=== PATIENT | male | born 1975 | race Caucasian/White ===

== ENCOUNTER 2016-11-03 20:20 | Emergency (ER) | payer BC ==
[~2016-11-03] VITALS: Ht 182.9 cm; Wt 91.6 kg
[2016-11-03 20:28] VITALS: Ht 182.9 cm; Wt 91.6 kg
[2016-11-03] MEDS ORDERED: CEFTRIAXONE SOD INJ 1 GM ADDVIAL IV STA (21:42)
[2016-11-03] MEDS ORDERED: ONDANSETRON INJ 2 MG/ML 2 ML VIAL IV STA (21:42)
[2016-11-03] MEDS ORDERED: SODIUM CHLORIDE 0.9% 1000ML 1,000 ML IV STA (21:42)
[2016-11-03] MEDS ORDERED: KETOROLAC TROMETHAMINE 30 MG/ML VIAL IV STA (21:42)
[2016-11-03] MEDS ORDERED: MULT-506 PO (21:53)
[2016-11-03] MEDS ORDERED: ESCI1TAB18 PO (21:53)
[2016-11-03 22:07] VITALS: O2SAT 96
[2016-11-03 22:09] VITALS: TEMP 37.4
[2016-11-03 22:33] LABS: COMPLETE YES; HEMATOCRIT 39.3 % (42-52); IG% 0.2 %; LYMPH % 7.3 %; LYMPH ABS # 0.48 K/uL (1.2-3.4); MEAN CELL VOLUME 88.3 fL (80-100); MEAN CORPUSCULAR HEMOGLOBIN 31.7 pg (25-34); MEAN CORPUSCULAR HGB CONC 35.9 g/dl (32-36); MEAN PLATELET VOLUME 9.4 fL (7.4-10.4); MONO % 8.3 %; NEUT % 84.2 %; PLATELET COUNT 161 K/uL (130-400); RED BLOOD COUNT 4.45 M/uL (4.7-6.1); WHITE BLOOD COUNT 6.62 K/uL (4.8-10.8)
--- NOTE | 2016-11-03 22:41 | DIAGNOSTIC IMAGING REPORT ---
SINGLE VIEW CHEST CLINICAL HISTORY: Fever. FINDINGS: An AP, portable, upright chest radiograph is obtained. No prior studies are available for comparison at the time of dictation. The examination is degraded by portable technique and patient rotation. The cardiomediastinal silhouette is unremarkable. Faint patchy airspace opacities are questioned in the right lower lung. No lobar consolidation or pleural effusion is identified. No pneumothorax is seen. The bony thorax is grossly intact. IMPRESSION: 1. There is no lobar consolidation or pleural effusion. 2. Faint patchy opacities are questioned in the right lower lung. This may simply represent superimposition of shadows. A dedicated PA and lateral examination is recommended for further assessment. Electronically signed by: Austin Carpio M.D. 11/03/2016 10:40 PM Dictated Date/Time: 11/03/2016 10:39 PM
[2016-11-03 22:52] LABS: BUN/CREATININE RATIO 13.2 (10-20); CALCIUM 9.7 mg/dl (8.5-10.1); CREATININE 0.79 mg/dl (0.60-1.40); POTASSIUM 3.7 mmol/L (3.5-5.1)
[2016-11-03 23:46] LABS: LYME DISEASE AB IGM NEG (NEG)
[2016-11-03 23:47] LABS: LYME DISEASE AB IGG NEG (NEG)
[2016-11-03 23:51] LABS: MANUAL MICROSCOPIC REQUIRED? NO; REVIEW REQ? NO; URINE APPEARANCE CLEAR (CLEAR); URINE BILIRUBIN NEG (NEG); URINE COLOR YELLOW; URINE EPITHELIAL CELL AUTO 0-5 /lpf (0-5); URINE NITRITE NEG (NEG); URINE PH 6.5 (4.5-7.5); URINE SPECIFIC GRAVITY 1.012 (1.000-1.030); UROBILINOGEN NEG (NEG)
[2016-11-04] MEDS ORDERED: DOXY100C76 PO (00:24)
[2016-11-04 00:45] LABS: INFLUENZA A PCR Neg for Influ A (NEG); INFLUENZA B PCR Neg for Influ B (NEG)
[2016-11-04 00:49] VITALS: BP 110/77; PULSE 78; O2SAT 98
--- NOTE | 2016-11-04 01:16 | EMERGENCY ROOM VISIT NOTE ---
History Report prepared by Aron: Anya Singh Under the Supervision of: Dr. Berto Mijares M.D. First contact with patient: 21:17 Chief Complaint: FEVER Stated Complaint: FEVER,ACHES,NAUSEA,SWOLLEN AREA AROUND OLD TICKBIT History of Present Illness The patient is a 41 year old male who presents to the Emergency Room with complaints of a persistent rash starting 5 days ago. The rash is located around a tick bite he had 1 year ago. He developed cold symptoms 3 days ago. He reports diaphoresis, joint fatigue, cough, chest congestion, rhinorrhea, fever, and vomiting. He vomited 3 times today. He has a decreased appetite. He is able to swallow his saliva. He denies any sick contacts. He lives in an area with ticks. Source of History: patient Onset: 5 days ago Position: other (skin) Quality: other (rash) Timing: other (persistent) Associated Symptoms: + diaphoresis, + cough, + vomiting Note: Pt reports joint fatigue. Review of Systems See HPI for pertinent positives & negatives. A total of 10 systems reviewed and were otherwise negative. Past Medical & Surgical Medical Problems: (1) Seizure Family History Cancer Heart disease Hypertension Social History Smoking Status: Current Every Day Smoker Marital Status: Housing Status: lives with significant other Occupation Status: employed Current/Historical Medications Scheduled Doxycycline Monohydrate (Monodox), 100 MG PO BID Escitalopram Oxalate (Lexapro), 30 MG PO DAILY Multivitamin (Multivitamin), 1 TAB PO DAILY Allergies Coded Allergies: Ciprofloxacin (Unverified Allergy, Severe, PT STATES "NEAR EXPERIENCE", 11/03/16) Physical Exam Vital Signs Date Time Temp Pulse Resp B/P (MAP) Pulse Ox O2 Delivery O2 Flow Rate FiO2 11/04/16 00:49 78 18 110/77 98 11/03/16 22:28 78 11/03/16 22:09 37.4 75 18 121/77 95 Room Air 11/03/16 22:07 96 Room Air 11/03/16 20:28 37.3 96 18 139/83 96 Room Air Physical Exam GENERAL: Patient is a healthy-appearing well-nourished male HEAD: Normocephalic atraumatic EYES: Ocular movements intact pupils equal and react to light OROPHARYNX mucous membranes are moist no exudates present no erythema or edema present NECK: Supple no nuchal rigidity no evidence of meningitis or encephalitis CHEST: Good equal expansion LUNGS: Clear and equal to auscultation CARDIAC: Normal S1 and S2 ABDOMEN: Soft nontender no guarding BACK: No CVA tenderness EXTREMITIES: No pain upon palpation normal muscle strength in all groups no clubbing cyanosis or edema NEURO: Patient is following commands and answering questions appropriately. Alert and oriented x3 Cranial Nerves 2-12 grossly intact Medical Decision & Procedures ER Provider Diagnostic Interpretation: X-ray results as stated below per interpretation by me and the radiologist: SINGLE VIEW CHEST CLINICAL HISTORY: Fever. FINDINGS: An AP, portable, upright chest radiograph is obtained. No prior studies are available for comparison at the time of dictation. The examination is degraded by portable technique and patient rotation. The cardiomediastinal silhouette is unremarkable. Faint patchy airspace opacities are questioned in the right lower lung. No lobar consolidation or pleural effusion is identified. No pneumothorax is seen. The bony thorax is grossly intact. IMPRESSION: 1. There is no lobar consolidation or pleural effusion. 2. Faint patchy opacities are questioned in the right lower lung. This may simply represent superimposition of shadows. A dedicated PA and lateral examination is recommended for further assessment. Electronically signed by: Austin Carpio M.D. 11/03/2016 10:40 PM Dictated Date/Time: 11/03/2016 10:39 PM Laboratory Results 11/03/16 22:10 Red Blood Count 4.45, Mean Corpuscular Volume 88.3, Mean Corpuscular Hemoglobin 31.7, Mean Corpuscular Hemoglobin Concent 35.9, Mean Platelet Volume 9.4, Neutrophils (%) (Auto) 84.2, Lymphocytes (%) (Auto) 7.3, Monocytes (%) (Auto) 8.3, Eosinophils (%) (Auto) 0.0, Basophils (%) (Auto) 0.0, Neutrophils # (Auto) 5.58, Lymphocytes # (Auto) 0.48, Monocytes # (Auto) 0.55, Eosinophils # (Auto) 0.00, Basophils # (Auto) 0.00 11/03/16 22:10 Test 11/03/16 22:10 11/03/16 22:26 11/03/16 23:15 White Blood Count 6.62 K/uL (4.8-10.8) Red Blood Count 4.45 M/uL (4.7-6.1) Hemoglobin 14.1 g/dL (14.0-18.0) Hematocrit 39.3 % (42-52) Mean Corpuscular Volume 88.3 fL (80-100) Mean Corpuscular Hemoglobin 31.7 pg (25-34) Mean Corpuscular Hemoglobin Concent 35.9 g/dl (32-36) Platelet Count 161 K/uL (130-400) Mean Platelet Volume 9.4 fL (7.4-10.4) Neutrophils (%) (Auto) 84.2 % Lymphocytes (%) (Auto) 7.3 % Monocytes (%) (Auto) 8.3 % Eosinophils (%) (Auto) 0.0 % Basophils (%) (Auto) 0.0 % Neutrophils # (Auto) 5.58 K/uL (1.4-6.5) Lymphocytes # (Auto) 0.48 K/uL (1.2-3.4) Monocytes # (Auto) 0.55 K/uL (0.11-0.59) Eosinophils # (Auto) 0.00 K/uL (0-0.5) Basophils # (Auto) 0.00 K/uL (0-0.2) RDW Standard Deviation 40.1 fL (36.4-46.3) RDW Coefficient of Variation 12.4 % (11.5-14.5) Immature Granulocyte % (Auto) 0.2 % Immature Granulocyte # (Auto) 0.01 K/uL (0.00-0.02) Anion Gap 7.0 mmol/L (3-11) Est Creatinine Clear Calc Drug Dose 135.1 ml/min Estimated GFR () 129.3 Estimated GFR (Non- 111.5 BUN/Creatinine Ratio 13.2 (10-20) Calcium Level 9.7 mg/dl (8.5-10.1) Total Bilirubin 0.5 mg/dl (0.2-1) Direct Bilirubin 0.2 mg/dl (0-0.2) Aspartate Amino Transf (AST/SGOT) 42 U/L (15-37) Alanine Aminotransferase (ALT/SGPT) 71 U/L (12-78) Alkaline Phosphatase 99 U/L (45-117) Total Protein 7.6 gm/dl (6.4-8.2) Albumin 3.8 gm/dl (3.4-5.0) Lyme Disease IgG Antibody NEG (NEG) Lyme Disease IgM Antibody NEG (NEG) Monoscreen NEG (NEG) Influenza Type A (RT-PCR) Neg for Influ A (NEG) Influenza Type A Antigen Neg for Influ A (NEG) Influenza Type B Antigen Neg for Influ B (NEG) Influenza Type B (RT-PCR) Neg for Influ B (NEG) Urine Color YELLOW Urine Appearance CLEAR (CLEAR) Urine pH 6.5 (4.5-7.5) Urine Specific [place] 1.012 (1.000-1.030) Urine Protein NEG (NEG) Urine Glucose (UA) NEG (NEG) Urine Ketones TRACE (NEG) Urine Occult Blood TRACE (NEG) Urine Nitrite NEG (NEG) Urine Bilirubin NEG (NEG) Urine Urobilinogen NEG (NEG) Urine Leukocyte Esterase NEG (NEG) Urine WBC (Auto) 0 /hpf (0-5) Urine RBC (Auto) 0-4 /hpf (0-4) Urine Hyaline Casts (Auto) 0 /lpf (0-5) Urine Epithelial Cells (Auto) 0-5 /lpf (0-5) Urine Bacteria (Auto) NEG (NEG) Labs reviewed by ED physician. Medications Administered Medications (Trade) Dose Ordered Sig/Dolores Route Start Time Stop Time Status Last Admin Dose Admin Sodium Chloride 1,000 ml @ 999 mls/hr Q1H1M STAT IV 11/03/16 21:42 11/03/16 22:42 DC 11/03/16 22:24 999 MLS/HR Ketorolac Tromethamine (Toradol Inj) 30 mg NOW STAT IV 11/03/16 21:42 11/03/16 21:45 DC 11/03/16 22:36 30 MG Ceftriaxone Sodium (Rocephin Inj) 2 gm NOW STAT IV 11/03/16 21:42 11/03/16 21:45 DC 11/03/16 22:36 2 GM Ondansetron HCl (Zofran Inj) 4 mg NOW STAT IV 11/03/16 21:42 11/03/16 21:45 DC 11/03/16 22:36 4 MG ED Course 2137: Past medical records reviewed. The patient was evaluated in room C8. A complete history and physical examination was performed. 2141: Zofran Inj 4 mg IV, Rocephin Inj 2 gm IV, Toradol Inj 30 mg IV, NSS 1000 ml @ 999 mls/hr IV. 0015: Upon reexamination the patient is resting comfortably. I discussed results and treatment plan with the patient. He verbalizes agreement and understanding. The patient is ready for discharge. Medical Decision Prior records/ancillary studies reviewed. Triage Nursing notes reviewed. Additional history obtained from family. The patient's history was concerning for fever. Differential diagnosis: Etiologies such as viral syndrome, otitis, pharyngitis, pneumonia, influenza, meningitis, urinary tract infection, sepsis, bacteremia, as well as others were entertained. Medication Reconciliation: I attest that I have personally reviewed the patient' s current medication list Blood Pressure Screening: Patient was found to have an elevated blood pressure and was referred to their primary care doctor for recheck and further treatment This is a 41-year-old male who presents emergency department complaining of fever. The patient has an altered bite to his right torso and now suddenly had a rash expanding from that area. Based on this finding I feel the patient should be treated for erythema migrans. A Lyme titer was taken and is considered negative. However he was given 2 g Rocephin in the emergency Department with much improvement in his symptoms. He was also given a normal saline bolus along with Toradol. The patient does not have an elevation in his white blood count cell count and I do believe can be safely discharged home. Patient and family were in agreement with the treatment plan. I will continue the patient on doxycycline for the next 2 weeks Impression Primary Impression: Erythema migrans (Lyme disease) Scribe Attestation The scribe's documentation has been prepared under my direction and personally reviewed by me in its entirety. I confirm that the note above accurately reflects all work, treatment, procedures, and medical decision making performed by me. Departure Information Dispostion Home / Self-Care Prescriptions Doxycycline Monohydrate (Monodox) 100 Mg Cap 100 MG PO BID for 14 Days, #28 CAP Prov: Berto Mijares MD 11/04/16 Referrals No Doctor, Assigned Forms HOME CARE DOCUMENTATION FORM, IMPORTANT VISIT INFORMATION Patient Instructions ED Fever Unconf Cause, Fever - [facility], My [facility] Additional Instructions You were found to have an elevated blood pressure today (>120 sytolic or >90 diastolic). Per medicare guidelines, you need to follow up with this blood pressure screening with your Primary Care Physician (PCP). For a new PCP call [phone]. Take 600 mg Ibuprofen every 6 hours Take 1000 mg Tylenol every 6 hours You have been examined and treated today on an emergency basis only. This is not a substitute for, or an effort to provide, complete comprehensive medical care. It is impossible to recognize and treat all injuries or illnesses in a single emergency department visit. It is therefore important that you follow up closely with your PCP. Call as soon as possible for an appointment. Thank you for your time and consideration. I look forward to speaking with you again soon. Please don't hesitate to call us if you have any questions.
[2016-11-10 17:37] LABS: EBV EARLY ANTIGEN AB <9.00 U/ML; EHRLICHIA CHAFF IGG AB <1:64 (<1:64); EHRLICHIA CHAFF IGM AB <1:20 (<1:20)
== END 2016-11-04 00:51 | disposition home or self-care (01) ==
LOC: C.EDB 20:22 → C.EDC 11-04 00:51
DX: A69.20 Lyme disease, unspecified (principal); R56.9 Unspecified convulsions; Z80.9 Family history of malignant neoplasm, unspecified; Z82.49 Family history of ischemic heart disease and other diseases of the circulatory system; F17.210 Nicotine dependence, cigarettes, uncomplicated; Z79.899 Other long term (current) drug therapy

== ENCOUNTER → 2016-11-11 | Outpatient (CLI) | payer BC ==
[~2016-11-11] MED LIST: DOXY100C76 PO; ESCI1TAB18 PO; MULT-506 PO
--- NOTE | 2016-11-11 12:04 | DIAGNOSTIC IMAGING REPORT ---
L-SPINE MIN 4 VIEWS ROUTINE HISTORY: Pain M54.17 COMPARISON: None. FINDINGS: There is no fracture. No subluxation. Disc spaces are preserved. IMPRESSION: No fracture or subluxation within the lumbar spine. The above report was generated using voice recognition software. It may contain grammatical, syntax or spelling errors. Electronically signed by: Zbigniew Catalan M.D. 11/11/2016 12:03 PM Dictated Date/Time: 11/11/2016 12:02 PM
== END ==
LOC: C.RAD 11:46
PROVIDERS: ATTEND Family Medicine
DX: M54.17 Radiculopathy, lumbosacral region (principal)

== ENCOUNTER → 2016-11-18 | Outpatient (CLI) | payer BC ==
--- NOTE | 2016-11-18 12:30 | DIAGNOSTIC IMAGING REPORT ---
LEFT LOWER EXTREMITY VENOUS DOPPLER CLINICAL HISTORY: Left leg pain and COMPARISON STUDY: No previous studies for comparison. TECHNIQUE: Sonography of the deep venous system of the left lower extremity was performed. Compression and augmentation were evaluated. FINDINGS: The common femoral, superficial femoral and popliteal veins were compressible. Augmentation was normal. Flow was shown within the deep calf vessels. IMPRESSION: No evidence of deep venous thrombus within the left lower extremity. Electronically signed by: Justin Campbell M.D. 11/18/2016 12:28 PM Dictated Date/Time: 11/18/2016 12:28 PM
== END | disposition home or self-care (01) ==
LOC: C.ULTR 11:47
PROVIDERS: ATTEND Family Medicine
DX: M79.605 Pain in left leg (principal)